=== PATIENT | female | born 1980 | race Caucasian/White ===

== ENCOUNTER 2019-08-07 13:10 | Emergency (ER) | payer OTHER, SELFPAY | END 2019-08-07 16:22 | disposition home or self-care (01) | PROVIDERS: Emergency Provider Physician Assistant; Family Provider Nurse Practitioner; Visit Provider Physician Assistant | DX: S01.511A Laceration without foreign body of lip, initial encounter (principal); W55.22XA Struck by cow, initial encounter; Y92.009 Unspecified place in unspecified non-institutional (private) residence as the place of occurrence of the external cause; F17.210 Nicotine dependence, cigarettes, uncomplicated | CPT/HCPCS: 12011; 96372; 99284; J2001; J2270 ==

== ENCOUNTER → 2019-10-01 09:38 | Outpatient (BNVA) | payer OTHER, SELFPAY | PROVIDERS: Family Provider Nurse Practitioner; PCP Nurse Practitioner; Referring Provider Nurse Practitioner; Visit Provider Nurse Practitioner | DX: Z09 Encounter for follow-up examination after completed treatment for conditions other than malignant neoplasm (principal) | CPT/HCPCS: 80061 ==

== ENCOUNTER 2020-03-17 20:15 | Emergency (ER) | payer OTHER, SELFPAY ==
[2020-03-17 20:24] VITALS: BP 122/82; PULSE 80; RESP 16; TEMP 36.4; O2SAT 99; BMI 17.4
--- NOTE | 2020-03-17 21:55 | W.ED.GENADLT ---
HPI - General Adult General: Chief complaint: General Medical Stated complaint: l side pains Time Seen by Provider: 03/17/20 21:55 Source: patient Mode of arrival: ambulatory Limitations: no limitations Review of Systems General: Reports: 10 or more systems reviewed and unremarkable except in HPI and below PFSH ED PFSH: Surgical History (Updated 10/01/19 @ 08:50 by GAMALIEL Christie) History of hysterectomy History of surgery on upper extremity History of tonsillectomy Social History (Updated 03/17/20 @ 20:29 by Aniya Roberto RN) Smoking and tobacco status: current every day smoker cigarettes Packs smoked per day: 1 Alcohol intake: current Alcohol intake frequency: 3 or more drinks per day Alcohol type: beer Substance/Drug Use: never History of recent travel: No Physical Exam Const: COMMON NORMALS: no acute distress and patient oriented x3 GENERAL APPEARANCE: cooperative HENMT: COMMON NORMALS: normocephalic, TM's normal bilaterally and Normal external nose present HEAD & SCALP: normal to inspection and normocephalic NOSE: Normal external nose present TYMPANIC MEMBRANE: TM's normal bilaterally MOUTH: Normal oral and palatal mucosa present THROAT: posterior oropharynx normal Eye: GENERAL EYE: appearance normal, both eyes and all related structures Neck/C-Spine: COMMON NORMALS: full ROM Lymph: LYMPHATIC: no lymphadenopathy noted Chest: COMMONS NORMALS: normal inspection of the chest Resp: COMMON NORMALS: normal respiratory effort EFFORT & INSPECTION: Yes able to speak in complete sentences Cardio: COMMON NORMALS: regular rate and regular rhythm RATE: regular rate RHYTHM: regular rhythm GI: COMMON NORMALS: non-tender : COMMON NORMALS: Yes no CVA tenderness BLADDER/KIDNEY EXAM: Yes no CVA tenderness Back/Pelvis: COMMON NORMALS: no CVA tenderness and thoracic and lumbar spine normal to inspection Extremity: COMMON NORMALS: normal to inspection Neuro: COMMON NORMALS: patient oriented x3 and moves all extremities Psych: COMMON NORMALS: mental status grossly normal and cooperative Skin: COMMON NORMALS: no rashes or lesions noted GENERAL SKIN EXAM: no rashes or lesions noted Course Vital Signs: Vital signs: Vital Signs Temperature 97.5 F L 03/17/20 20:24 Pulse Rate 80 03/17/20 20:24 Respiratory Rate 16 03/17/20 20:24 Blood Pressure 122/82 03/17/20 20:24 Pulse Oximetry 99 03/17/20 20:24 Discharge Plan Discharge Prescriptions: No Action Excedrin Migraine 250-250-65 mg tablet 1 tab PO Q6H PRNRF: 0 Coding Level of Care Code ED Railroad Accountant for Gabby Arnold
== END 2020-03-17 23:00 | disposition home or self-care (01) ==
PROVIDERS: Emergency Provider Emergency Medicine
DX: Z53.21 Procedure and treatment not carried out due to patient leaving prior to being seen by health care provider (principal)
CPT/HCPCS: 99281

== ENCOUNTER → 2022-04-28 11:59 | Day surgery (SDC) | payer OTHER, SELFPAY ==
[2022-04-28] MEDS: cefTRIAXone 2,000 MG in sodium chloride 0.9% (plus) 50 ML 100 MG IV (12:29)
[2022-04-28 12:46] VITALS: BP 112/68; PULSE 76; RESP 18; TEMP 36.7; O2SAT 98
== END ==
PROVIDERS: PCP Family Medicine; Visit Provider Family Medicine
DX: A69.20 Lyme disease, unspecified (principal)
CPT/HCPCS: 80053; 85025; 96365; J0696

== ENCOUNTER 2022-05-01 10:51 | Day surgery (SDC) | payer OTHER, SELFPAY ==
[2022-04-28 18:11] VITALS: BMI 18.1
[2022-05-01] VITALS (10 sets, daily range): BP systolic 92–122; BP diastolic 72–87; PULSE 78–94; RESP 14–18; TEMP 36.4–37; O2SAT 94–99
[2022-05-01] MEDS: sodium chloride 0.9% 1,000 ML 30 ML IV (11:40)
--- NOTE | 2022-05-01 13:30 | ANES.PREANE2 ---
Pre-Anesthetic Assessment Height/Weight: Height 1.65 m Weight 49.612 kg Temp Pulse Resp BP Pulse Ox O2 Del Method 97.6 F 91 18 114/87 99 05/01/22 11:16 05/01/22 11:16 05/01/22 11:16 05/01/22 11:16 05/01/22 11:16 05/01/22 11:16 Preop Diagnosis: Neck mass Operation Date: 05/01/22 12:20 Proposed Procedures p excision of nlfet side of neck mass 36489,R22.1(Left) - Saúl Mckinley MD Familial anesthetic complications: ponv Was Beta Zach taken within 24 hours: N/A Was Clonidine taken within 24 hours: N/A Last intake: Intake Last Liquid Date 04/30/22 Last Liquid Time 21:30 Last Solid Date 04/30/22 Last Solid Time 21:30 Social Alcohol (1-2 beers aday) and Tobacco Exam alert, oriented x 3, clear to auscultation bilaterally and regular rate & rhythm Airway Mallampati: Class II Dentition: full Anesthetic Plan ASA status: 2 Anesthesia: MAC Risk of > 500 ml blood loss (7ml/kg in children): No Medications/Allergies Home Medications Medication Instructions Recorded Confirmed Last Taken Type tticzzl-pmnpcfqparxqc-gofqsbhg 250 1 tab PO Q6H PRN Pain 10/01/19 05/01/22 04/17/22 History mg-250 mg-65 mg tablet (Excedrin Migraine) alprazolam 1 mg tablet 1 mg PO BID PRN anxiety #60 tabs 04/20/22 05/01/22 04/30/22 Rx Allergies Allergy/AdvReac Type Severity Reaction Status Date / Time amoxicillin Allergy Unknown Verified 04/28/22 18:10 [facility] Anesthesia Surgical History History of hysterectomy History of surgery on upper extremity History of tonsillectomy Social History Smoking and tobacco status: current every day smoker cigarettes Packs smoked per day: 1 Alcohol intake: current Alcohol intake frequency: 3 or more drinks per day Alcohol type: beer History of recent travel: No Data Anesthesia Cardiac Studies: No Data to Display
[2022-05-01] MEDS: scopolamine 1.5 Patch 1 PATCH TRANSDERMA (13:32)
--- NOTE | 2022-05-01 13:42 | W.PM.OPSUD ---
Surgery/Procedure H&P Update DATE OF PROCEDURE: May 01, 2022 DATE H&P PERFORMED: 04/26/22 H&P UPDATE INFORMATION: I have reviewed H&P completed within last 30 days, I have examined patient prior to procedure and No changes to prior documentation PREOP DIAGNOSIS: Neck mass PRIMARY INDICATION FOR PROCEDURE: The same PLANNED PROCEDURE: Operation Date: 05/01/22 12:20 Proposed Procedures p excision of nlfet side of neck mass 11967,R22.1(Left) - Saúl Mckinley MD
[2022-05-01] MEDS: clindamycin 600 MG/50 ML PREMIX 100 MG IV (14:47)
--- NOTE | 2022-05-01 15:14 | PM.OP ---
Operative Report Date of procedure: May 01, 2022 Pre-op diagnosis: Preop Diagnosis Neck mass Post-op diagnosis: Sebaceous cyst of the neck Procedure done: Excision of left-sided neck mass Specimens removed/disposition: Left-sided neck mass 1.5 x 1.2 cm Surgeon: Saúl Mckinley MD Ammunition Components Inspector: vehicle monitor techniciangood Feliz nurse Marce Anesthesia: MAC (battery inspector Eboni) Estimated blood loss (mL): 2 Procedure: After identifying the patient holding area, the correct site and side was marked before the procedure by myself, patient was then taken to the operative suite, was placed in first in supine position, IV propofol was administered by the anesthesia provider ,Time-out was done verifying the patient's name/date of /planned procedure and destination after the procedure, all were in agreement. SCDs confirmed to be functioning, preoperative antibiotics administered per protocol, and beta yandel protocol was confirmed Patient's neck was then placed in right lateral position and was appropriately padded and secured to the operating table, left arm was tucked to his body, prep and drape of the left neck region was done under the usual sterile technique. The neck mass was well palpable at the left submandibular region Local anesthesia lidocaine was infiltrated site of the incision, transverse skin incision was done, including skin and subcutaneous tissues, dissection was then carried by the Bovie cautery, further dissection showed a sebaceous like cyst 1.5 x 1.2 cm located at the subcutaneous level that was excised and sent for permanent pathology At this point thorough irrigation with warm saline was done, hemostasis was achieved, followed by closure by 3 oh Vicryl then 4-0 Monocryl and surgical glue and dressing. Count of instruments, needles and sponges were completed at the end of the procedure Patient was taken to the recovery room in stable condition I was present for the whole entire procedure
--- NOTE | 2022-05-01 15:26 | SUR.PHASEI ---
1318 PT TO PACU 5 PT DOES NOT AWAKE TO TOUCH, GOOD RESP NOTED SATS 94-96% VSS PT WITH GOOD RESP EFFORT, IV TO RT WRIST #20 WITH NS 400ML AT KVO RATE PER GRAVITY, PT ID BRACELET TO RT WRIST , PT ID'D WITH 2 IDENTIFIERS. WARM BLANKETS TO PT, PT LT NECK DRESSING D/I, PT MONITOR SR WIHT NO ECTOPY.
--- NOTE | 2022-05-01 15:27 | ANE.PACU2 ---
Inpatient post-anesthesia follow up: Airway intact: Yes Vital signs: Temperature 98.3 F Pulse Rate 84 Respiratory Rate 14 Blood Pressure 92/72 Pulse Oximetry 94 Oxygen Delivery Me thod Room Air Oxygen Flow Rate Fraction of Inspir ed Oxygen Hydration adequate: Yes Nausea and vomiting: No Pain level: 1 Mental status: Baseline
[2022-05-01] MEDS: HYDROcodone-acetaminophen 5-325 mg Tablet 1 TAB PO (15:52)
== END 2022-05-01 16:20 | disposition home or self-care (01) ==
PROVIDERS: PCP Family Medicine; Visit Provider Surgery
PROC: (CPT 21555; principal; 2022-05-01 12:10)
DX: L72.0 Epidermal cyst (principal); F17.210 Nicotine dependence, cigarettes, uncomplicated
CPT/HCPCS: 21555; 88307; J2250; J2704; J3010; J3490; J7030

== ENCOUNTER 2022-07-28 13:55 | Outpatient (CLI) | payer OTHER, SELFPAY ==
--- NOTE | 2022-07-28 14:26 | MM_ITS ---
WS: [id number] LEFT 3D TOMOSYNTHESIS DIGITAL MAMMOGRAPHY WITH CAD CLINICAL INFORMATION: ABNORMAL MAMMO HISTORY: Reported nodule on outside chest CT. COMPARISON: Outside chest CT July 10, 2022 and outside mammogram July 14, 2022 TECHNIQUE: 3 views of the left breast were obtained. FINDINGS: The left breast is composed of heterogeneous fibroglandular density tissue, which can limit the detec tion of small underlying mass lesions. Dense nodular breast tissue central LEFT breast is similar to the outside study. Well-circumscribed ovoid nodular density measuring 10 mm is unchanged since the ou tside study. This is lower outer quadrant. Ultrasound described below. ULTRASOUND BREAST LEFT TECHNIQUE: Ultrasound left breast focused area of concern. CLINICAL INFORMATION: ABNORMAL MAMMO FINDINGS: Ultrasound LEFT breast at 3-6 clock position. At the 5:00 position, there is a 1.0 x 1.0 x 0.5 cm ovo id gently lobulated slightly hypoechoic nodule 12:00 position 1 cm from the nipple. This may represen t a benign fibroadenoma in a patient this age but technically indeterminant by imaging and recommend further evaluation with ultrasound-guided biopsy. MM/[place] [id number] IMPRESSION: BI-RADS: 4-Suspicious Finding-Biopsy Should Be Considered FOLLOW UP: US Guided Biopsy Recommended RECOMMEND ULTRASOUND-GUIDED BIOPSY LEFT BREAST NODULE
== END 2022-07-28 13:56 | disposition home or self-care (01) ==
PROVIDERS: PCP Family Medicine; Visit Provider Family Medicine
DX: R92.8 Other abnormal and inconclusive findings on diagnostic imaging of breast (principal); N63.23 Unspecified lump in the left breast, lower outer quadrant
CPT/HCPCS: 76642; 77061; G0279